=== PATIENT | female | born 1980 | race Hispanic/Latino ===

== ENCOUNTER 2025-02-11 09:48 | Outpatient (CLI) | payer OTHER | END 2025-02-11 09:49 | disposition home or self-care (01) | LOC: CSHSLEEP 09:48 | PROVIDERS: ATTEND Nurse Practitioner Family | DX: G47.33 Obstructive sleep apnea (adult) (pediatric) (principal); R53.83 Other fatigue; F41.9 Anxiety disorder, unspecified; F32.A Depression, unspecified; E66.9 Obesity, unspecified; Z68.32 Body mass index [BMI] 32.0-32.9, adult; R06.83 Snoring | CPT/HCPCS: 95810 ==

== ENCOUNTER 2025-03-10 08:54 | Outpatient (CLI) | payer OTHER | END 2025-03-10 08:55 | disposition home or self-care (01) | LOC: CSHSLEEP 08:54 | PROVIDERS: ATTEND Nurse Practitioner Family | DX: G47.33 Obstructive sleep apnea (adult) (pediatric) (principal); R53.83 Other fatigue; F32.A Depression, unspecified; F41.9 Anxiety disorder, unspecified; E66.9 Obesity, unspecified; Z68.32 Body mass index [BMI] 32.0-32.9, adult; R06.83 Snoring | CPT/HCPCS: 95811 ==